=== PATIENT | female | born 1945 | race Caucasian/White ===

== ENCOUNTER 2024-02-16 08:52 | Outpatient (OUT) | payer OTHER, SELFPAY ==
--- NOTE | 2024-02-16 09:03 | XR_ITS ---
The [address] [address] Patient Name: NEWTON ANN MRN: [id number] date: 1945 Sex: F Assigned Patient Location: [facility] Current Patient Location: Accession/Order Number: [id number] Exam Date: 02/16/2024 09:10 Report Date: 02/17/2024 04:28 At the request of: SRI POWELL Procedure: XR DEXA axial skeleton EXAMINATION: XR DEXA axial skeleton HISTORY: Post Menopausal COMPARISON: DEXA bone densitometry 11/18/2005 TECHNIQUE: Dual-energy X-ray absorptiometry (DXA) was performed. FINDINGS: SPINE ANALYSIS: Average bone mineral density is 1.204 g/cm2. T-score (standard deviation relative to young adult mean): 0.2 . +4.6% change since prior study. HIP ANALYSIS: Lowest bone mineral density is within the left femoral neck, 0.737 g/cm2. T-score (standard deviation relative to young adult mean): -2.2 . -15.1% change since prior study. XR/XR DEXA axial skeleton IMPRESSION: World Health Organization Classification: Osteopenia - Moderate Fracture Risk FRAX: Cannot be calculated. Pharmacologic treatment recommendations * No uniform recommendation applies to all patients. Management plans must be individualized. * Consider initiating pharmacologic treatment in postmenopausal women and men >= 50 years of age who have the following: Primary fracture prevention: * T-score <= - 2.5 at the femoral neck, total hip, lumbar spine, 33% radius (some uncertainty with existing data) by DXA. * Low bone mass (osteopenia: T-score between - 1.0 and - 2.5) at the femoral neck or total hip by DXA with a 10-year hip fracture risk >= 3% or a 10-year major osteoporosis-related fracture risk >= 20% (i.e., clinical vertebral, hip, forearm, or proximal humerus) based on the [place]-adapted FRAXregistered model. Secondary fracture prevention: * Fracture of the hip or vertebra regardless of BMD [4, 5]. * Fracture of proximal humerus, pelvis, or distal forearm in persons with low bone mass (osteopenia: T-score between - 1.0 and - 2.5). The decision to treat should be individualized in persons with a fracture of the proximal humerus, pelvis, or distal forearm who do not have osteopenia or low BMD [12, 13]. Marilou MS, Kendrick SL, Shelli KL, Jm EM, Nidia KG, AJ, Margo ES. The clinician's guide to prevention and treatment of osteoporosis. Osteoporos Int. 2021;33(10):6912-8619. doi: 10.1007/n76092-055-62348-d. Epub 2021Aug 14. Erratum in: Osteoporos Int. 2021Nov 13;: PMID: [id number]; PMCID: [id number]. Electronically authenticated by: CHILO POTTER Date: 02/17/2024 04:28
== END 2024-02-16 08:53 | disposition home or self-care (01) ==
LOC: RAD 08:56
PROVIDERS: PCP Nurse Practitioner Family; Visit Provider Nurse Practitioner Family
DX: E28.39 Other primary ovarian failure (principal); M85.80 Other specified disorders of bone density and structure, unspecified site
CPT/HCPCS: 77080